=== PATIENT | female | born 1975 | race African-American/Black ===

== ENCOUNTER 2019-10-29 14:01 | Emergency (ER) | payer BC, OTHER ==
[~2019-10-29] VITALS: Ht 157.5 cm; Wt 63.0 kg
== END 2019-10-29 15:10 | disposition home or self-care (01) ==
LOC: FSED 14:01
DX: R05 Cough (principal); J30.1 Allergic rhinitis due to pollen; I10 Essential (primary) hypertension
CPT/HCPCS: 83518; 87400; 99283

== ENCOUNTER 2020-06-27 09:17 | Observation (INO) | payer BC ==
[~2020-06-27] VITALS: Ht 157.5 cm; Wt 63.0 kg
[2020-06-27] MEDS ORDERED: SODIUM CHLORIDE 0.9% 1000ML 1,000 ML IV STA (09:21)
[2020-06-27] MEDS ORDERED: METHYLPREDNISOLONE SOD SUCC 125 MG/2ML VIAL IV STA (09:21)
--- OUTSIDE RECORDS SUMMARY | 2020-06-27 09:24 | XMS REPORT | Continuity of Care Document ---
Author Author [facility] t Organization [facility] Address [address] [place] [address] Phone Unavailable Care Team Providers Care Insulation Worker Furnace Installer Name Role Phone NO, PCP PCP Unavailable Payers Payer Name Policy Type Policy Number Effective Date Expiration Date [facility] [id number] 2019 00:00:00 [facility] Cdc Review Covid19 [id number] [facility] Problems This patient has no known problems. Allergies, Adverse Reactions, Alerts This patient has no known allergies or adverse reactions. Medications This patient has no known medications. Procedures This patient has no known procedures. Encounters Start Date/Time End Date/Time Encounter Type Admission Type Att[facility] Care Department Encounter ID Source 2019-10-29 14:01:00 2019-10-29 15:10:00 Departed Emergency Room [facility] [id number] [facility] Results This patient has no known results.
[2020-06-27] MEDS ORDERED: ALBUTEROL/IPRATROPIUM 3 ML NEB NEB ONE (09:30)
[2020-06-27 10:02] LABS: BASOPHILS # (AUTO) 0.1 (0.0-0.1); BASOPHILS % 1.3 % (0.0-1.0); EOSINOPHILS # (AUTO) 0.1 (0.0-0.4); EOSINOPHILS % 1.8 % (0.0-6.0); HEMATOCRIT 38.1 % (34.2-44.1); HEMOGLOBIN 13.7 g/dL (12.0-16.0); LYMPHOCYTES % 41.1 % (18.0-39.1); MEAN CORPUSCULAR HEMOGLOBIN 30.2 pg (28-32); MEAN CORPUSCULAR VOLUME 84.1 fL (81-99); MONOCYTES # (AUTO) 0.5 (0.2-0.8); NEUTROPHILS # (AUTO) 3.5 (2.1-6.9); NEUTROPHILS % 48.4 % (38.7-80.0); PLATELET COUNT 279 x10e3/uL (140-360); RED BLOOD COUNT 4.53 x10e6/uL (3.6-5.1); RED CELL DISTRIBUTION WIDTH 13.2 % (11.7-14.4)
[2020-06-27 10:26] LABS: INR 0.95; PROTHROMBIN TIME 13.2 seconds (11.9-14.5)
[2020-06-27 10:27] LABS: PARTIAL THROMBOPLASTIN TIME 29.5 seconds (23.8-35.5)
[2020-06-27 10:30] LABS: ALANINE AMINOTRANSFERASE 15 IU/L (0-55); ALBUMIN 4.8 g/dL (3.5-5.0); ALBUMIN/GLOBULIN RATIO 1.2 (0.8-2.0); ALKALINE PHOSPHATASE 54 IU/L (40-150); ANION GAP 29.5 mmol/L (8-16); BLOOD UREA NITROGEN 11 mg/dL (7-26); BUN/CREATININE RATIO 14 (6-25); CALCIUM 9.5 mg/dL (8.4-10.2); CARBON DIOXIDE 22 mmol/L (22-29); CHLORIDE 90 mmol/L (98-107); CREATINE KINASE 194 IU/L (29-168); CREATININE, SERUM 0.76 mg/dL (0.57-1.11); EST GLOMERULAR FILTRATION RATE > 60 ML/MIN (60-); GLUCOSE 112 mg/dL (74-118); MAGNESIUM 1.9 MG/DL (1.3-2.1); POTASSIUM 3.5 mmol/L (3.5-5.1); SODIUM 138 mmol/L (136-145)
--- NOTE | 2020-06-27 11:11 | Diagnostic Imaging Report ---
EXAMINATION: CHEST SINGLE (PORTABLE) INDICATION: ^SOB, WHEEZING/SMOKER ^[id number] ^[id number] COMPARISON: None FINDINGS: TUBES and LINES: None. LUNGS: Normal lung volumes. Lungs are clear. No consolidations. PLEURA: No pleural effusion or pneumothorax. HEART AND MEDIASTINUM: The cardiomediastinal silhouette is unremarkable. BONES AND SOFT TISSUES: No acute osseous lesion. Soft tissues are unremarkable. UPPER ABDOMEN: No free air under the diaphragm. IMPRESSION: No acute thoracic radiographic abnormality. Signed by: Babs Guerra MD on 06/27/2020 11:08 AM
--- NOTE | 2020-06-27 11:45 | Emergency Department Note ---
History of Present Illnes History of Present Illness Chief Complaint: Respiratory History of Present Illness This is a 45 year old female X 3 DAYS SHORT OF BREATH. PAIN WORSE IN BACK WITH A DEEP BREATH. SAT 100%. DIFFICULTY COMPLETING SENTENCES. DENIES ANY COUGH, NAUSEA OR DIARRHEA, OR FEVERS. Historian: Patient Arrival Mode: Car Additional Treatment MANAGING DIRECTOR: NONE Guide Dog Mobility Instructor Required: No Onset (how long ago): day(s) (3) Radiation: Reports back Severity: moderate Onset quality: gradual Timing of current episode: intermittent Chronicity: new Context: Denies recent illness Relieving factors: none Exacerbating factors: none Associated symptoms: Reports denies other symptoms Past Medical/Family History Physician Review I have reviewed the patient's past medical and family history. Any updates have been documented here. Past Medical History Recent Fever: No Clinical Suspicion of Infectio: No New/Unexplained Change in Ment: No Past Medical History: None Past Surgical History: None Social History Smoking Cessation: Current every day smoker Counseling Performed: Yes Alcohol Use: None Any Illegal Drug Use: No TB Exposure/Symptoms: No Physically hurt or threatened: No Family History Family history of heart diseas: No Other Last Tetanus: utd Any Pre-Existing Lines (PICC,: No Review of Systems Review of Systems Constitutional: Reports no symptoms EENTM: Reports no symptoms Cardiovascular: Reports no symptoms Respiratory: Reports as per HPI Gastrointestinal: Reports no symptoms Genitourinary: Reports no symptoms Musculoskeletal: Reports no symptoms Integumentary: Reports no symptoms Neurological: Reports no symptoms Psychological: Reports no symptoms Endocrine: Reports no symptoms Hematological/Lymphatic: Reports no symptoms Physical Exam Related Data Allergies: Coded Allergies: No Known Allergies (Unverified , 06/27/20) Triage Vital Signs Vital Signs Date Time Temp Pulse Resp B/P (MAP) Pulse Ox O2 Delivery O2 Flow Rate FiO2 06/27/20 09:19 98.1 88 22 178/112 100 Vital signs reviewed: Yes Physical Exam CONSTITUTIONAL Constitutional: Present well-developed, Present well-nourished HENT HENT: Present normocephalic, Present atraumatic, Present oropharynx clear/moist, Present nose normal HENT L/R: Present left ext ear normal, Present right ext ear normal EYES Eyes: Reports PERRL, Reports conjunctivae normal NECK Neck: Present ROM normal PULMONARY Pulmonary: Present effort normal, Present other (DIFFUSE MODERATE EXP WHEEZES) CARDIOVASCULAR Cardiovascular: Present regular rhythm, Present heart sounds normal, Present capillary refill normal, Present normal rate GASTROINTESTINAL Abdominal: Present soft, Present nontender, Present bowel sounds normal GENITOURINARY Genitourinary: Present exam deferred SKIN Skin: Present warm, Present dry MUSCULOSKELETAL Musculoskeletal: Present ROM normal NEUROLOGICAL Neurological: Present alert, Present oriented x 3, Present no gross motor or sensory deficits PSYCHOLOGICAL Psychological: Present mood/affect normal, Present judgement normal Results Laboratory Result Diagram: 06/27/2092806/27/20928 Laboratory Laboratory Tests Test 06/27/20 09:41 06/27/20 09:29 Coronavirus (PCR) Not detected (NOTDETECTED) White Blood Count 7.17 x10e3/uL (4.8-10.8) Red Blood Count 4.53 x10e6/uL (3.6-5.1) Hemoglobin 13.7 g/dL (12.0-16.0) Hematocrit 38.1 % (34.2-44.1) Mean Corpuscular Volume 84.1 fL (81-99) Mean Corpuscular Hemoglobin 30.2 pg (28-32) Mean Corpuscular Hemoglobin Concent 36.0 g/dL (31-35) Red Cell Distribution Width 13.2 % (11.7-14.4) Platelet Count 279 x10e3/uL (140-360) Neutrophils (%) (Auto) 48.4 % (38.7-80.0) Lymphocytes (%) (Auto) 41.1 % (18.0-39.1) Monocytes (%) (Auto) 7.0 % (4.4-11.3) Eosinophils (%) (Auto) 1.8 % (0.0-6.0) Basophils (%) (Auto) 1.3 % (0.0-1.0) Neutrophils # (Auto) 3.5 (2.1-6.9) Lymphocytes # (Auto) 3.0 (1.0-3.2) Monocytes # (Auto) 0.5 (0.2-0.8) Eosinophils # (Auto) 0.1 (0.0-0.4) Basophils # (Auto) 0.1 (0.0-0.1) Absolute Immature Granulocyte (auto 0.03 x10e3/uL (0-0.1) Prothrombin Time 13.2 seconds (11.9-14.5) Prothromb Time International Ratio 0.95 Activated Partial Thromboplast Time 29.5 seconds (23.8-35.5) D-Dimer Quantitative (PE/DVT) 0.42 ug/mLFEU (0.00-0.45) Sodium Level 138 mmol/L (136-145) Potassium Level 3.5 mmol/L (3.5-5.1) Chloride Level 90 mmol/L (98-107) Carbon Dioxide Level 22 mmol/L (22-29) Anion Gap 29.5 mmol/L (8-16) Blood Urea Nitrogen 11 mg/dL (7-26) Creatinine 0.76 mg/dL (0.57-1.11) Estimat Glomerular Filtration Rate > 60 ML/MIN (60-) BUN/Creatinine Ratio 14 (6-25) Glucose Level 112 mg/dL (74-118) Calcium Level 9.5 mg/dL (8.4-10.2) Magnesium Level 1.9 MG/DL (1.3-2.1) Total Bilirubin 0.5 mg/dL (0.2-1.2) Aspartate Amino Transf (AST/SGOT) 19 IU/L (5-34) Alanine Aminotransferase (ALT/SGPT) 15 IU/L (0-55) Alkaline Phosphatase 54 IU/L (40-150) Creatine Kinase 194 IU/L (29-168) Creatine Kinase MB 1.40 ng/mL (0-5.0) Troponin I < 0.001 ng/mL (0-0.300) B-Type Natriuretic Peptide < 10.0 pg/mL (0-100) Total Protein 8.9 g/dL (6.5-8.1) Albumin 4.8 g/dL (3.5-5.0) Globulin 4.1 g/dL (2.3-3.5) Albumin/Globulin Ratio 1.2 (0.8-2.0) Laboratory Tests Test 06/27/20 09:41 06/27/20 09:29 Coronavirus (PCR) Not detected (NOTDETECTED) White Blood Count 7.17 x10e3/uL (4.8-10.8) Red Blood Count 4.53 x10e6/uL (3.6-5.1) Hemoglobin 13.7 g/dL (12.0-16.0) Hematocrit 38.1 % (34.2-44.1) Mean Corpuscular Volume 84.1 fL (81-99) Mean Corpuscular Hemoglobin 30.2 pg (28-32) Mean Corpuscular Hemoglobin Concent 36.0 g/dL (31-35) Red Cell Distribution Width 13.2 % (11.7-14.4) Platelet Count 279 x10e3/uL (140-360) Neutrophils (%) (Auto) 48.4 % (38.7-80.0) Lymphocytes (%) (Auto) 41.1 % (18.0-39.1) Monocytes (%) (Auto) 7.0 % (4.4-11.3) Eosinophils (%) (Auto) 1.8 % (0.0-6.0) Basophils (%) (Auto) 1.3 % (0.0-1.0) Neutrophils # (Auto) 3.5 (2.1-6.9) Lymphocytes # (Auto) 3.0 (1.0-3.2) Monocytes # (Auto) 0.5 (0.2-0.8) Eosinophils # (Auto) 0.1 (0.0-0.4) Basophils # (Auto) 0.1 (0.0-0.1) Absolute Immature Granulocyte (auto 0.03 x10e3/uL (0-0.1) Prothrombin Time 13.2 seconds (11.9-14.5) Prothromb Time International Ratio 0.95 Activated Partial Thromboplast Time 29.5 seconds (23.8-35.5) D-Dimer Quantitative (PE/DVT) 0.42 ug/mLFEU (0.00-0.45) Sodium Level 138 mmol/L (136-145) Potassium Level 3.5 mmol/L (3.5-5.1) Chloride Level 90 mmol/L (98-107) Carbon Dioxide Level 22 mmol/L (22-29) Anion Gap 29.5 mmol/L (8-16) Blood Urea Nitrogen 11 mg/dL (7-26) Creatinine 0.76 mg/dL (0.57-1.11) Estimat Glomerular Filtration Rate > 60 ML/MIN (60-) BUN/Creatinine Ratio 14 (6-25) Glucose Level 112 mg/dL (74-118) Calcium Level 9.5 mg/dL (8.4-10.2) Magnesium Level 1.9 MG/DL (1.3-2.1) Total Bilirubin 0.5 mg/dL (0.2-1.2) Aspartate Amino Transf (AST/SGOT) 19 IU/L (5-34) Alanine Aminotransferase (ALT/SGPT) 15 IU/L (0-55) Alkaline Phosphatase 54 IU/L (40-150) Creatine Kinase 194 IU/L (29-168) Creatine Kinase MB 1.40 ng/mL (0-5.0) Troponin I < 0.001 ng/mL (0-0.300) B-Type Natriuretic Peptide < 10.0 pg/mL (0-100) Total Protein 8.9 g/dL (6.5-8.1) Albumin 4.8 g/dL (3.5-5.0) Globulin 4.1 g/dL (2.3-3.5) Albumin/Globulin Ratio 1.2 (0.8-2.0) Lab results reviewed: Yes Imaging Imaging results reviewed: Yes Impressions EXAMINATION: CHEST SINGLE (PORTABLE) FINDINGS: TUBES and LINES: None. LUNGS: Normal lung volumes. Lungs are clear. No consolidations. PLEURA: No pleural effusion or pneumothorax. HEART AND MEDIASTINUM: The cardiomediastinal silhouette is unremarkable. BONES AND SOFT TISSUES: No acute osseous lesion. Soft tissues are unremarkable. UPPER ABDOMEN: No free air under the diaphragm. IMPRESSION: No acute thoracic radiographic abnormality. Signed by: Babs Guerra MD on 06/27/2020 11:08 AM Procedures 12 Lead ECG Interpretation ECG Interpretation : ECG: ECG 1 Guide Dog Mobility Instructor: Interpreted by ED physician Date: Jun 27, 2020 Time: 09:38 Rhythm: sinus bradycardia Rate: bradycardia BPM: 56 QRS axis: normal ST segments normal: Yes T wave inversion: III, aVF, V3, V4, V5, V6 T waves flattening: II Clinical Impression: abnormal ECG Assessment & Plan Medical Decision Making MDM SOB WITH PLEURITIC PAIN IN BACK, SMOKER, WHEEZING ON EXAM - CBC, CHEM, ECG, CARDIACS, CXR, COVID SWAB - R/O STEMI/NSTEMI, PNEUMONIA, COPD, COVID. STEROIDS/DUONEBS ORDERED Reassessment Reassessment PT IMPROVED WITH SOLUMEDROL/DUONEB. COVID NEG, CXR NL. ECG ABNORMAL - WILL ADMIT TO R/O ACS, GIVE STEROIDS/NEBS - SPOKE WITH DR BERRY Assessment & Plan Final Impression: (1) COPD (chronic obstructive pulmonary disease) (2) Abnormal ECG Depart Disposition: ADMITTED Last Vital Signs Date Time Temp Pulse Resp B/P (MAP) Pulse Ox O2 Delivery O2 Flow Rate FiO2 06/27/20 10:08 91 18 100 06/27/20 09:19 98.1 178/112 Medications in the ED Methylprednisolone Sodium Succinate 125 mg ONCE STAT IV Last administered on 06/27/20at 11:14; Admin Dose 125 MG; Start 06/27/20 at 09:21; Stop 06/27/20 at 09:36; Status DC Sodium Chloride 1,000 ml @ 0 mls/hr Q0M STAT IV Last administered on 06/27/20at 11:14; Admin Dose 999 MLS/HR; Start 06/27/20 at 09:21; Stop 06/27/20 at 09:36; Status DC Albuterol/ Ipratropium 6 ml ONCE ONCE NEB Last administered on 06/27/20at 10:08; Admin Dose 6 ML; Start 06/27/20 at 09:30; Stop 06/27/20 at 09:36; Stat us DC DANIAL PAVON MD Jun 27, 2020 11:45
[2020-06-27] MEDS ORDERED: MORPHINE SULFATE 2 MG/ML SYR 1ML IV PRN (12:00)
[2020-06-27] MEDS ORDERED: ONDANSETRON HCL INJ 2MG/ML 2ML 2 MG/ML VIAL IV PRN (12:00)
--- OUTSIDE RECORDS SUMMARY | 2020-06-27 12:28 | XMS REPORT | Continuity of Care Document ---
Author Author [facility] t Organization [facility] Address [address] [place] [address] Phone Unavailable Care Team Providers Care Subcontract Manager Name Role Phone NO, PCP PCP Unavailable Ryan PAVON Attphys Unavailable Payers Payer Name Policy Type Policy Number Effective Date Expiration Date S uvaldo [employer] [place] Ppo [id number] 2019 00:00:00 [facility] Cdc Review Covid19 [id number] [facility] Problems This patient has no known problems. Allergies, Adverse Reactions, Alerts This patient has no known allergies or adverse reactions. Medications This patient has no known medications. Procedures This patient has no known procedures. Encounters Start Date/Time End Date/Time Encounter Type Admission Type Attendi [facility] Care Department Encounter ID Source 2019-10-29 14:01:00 2019-10-29 15:10:00 Departed Emergency Room [facility] [id number] [facility] Results Test Description Test Time Test Comments Results Result Comments Source CHEST SINGLE (PORTABLE) 2020-06-27 11:05:00 [facility] : 1975 Sex: F [facility] [address] [address] Patient Name: AGATHA GRESHAM MR #: [id number] : 1975 Age/Sex: 45/F Req #: [id number] [facility] Physician: Ordered by: DANIAL PAVON MD Report #: [id number] Location: ER Room/Bed: Procedure: [id number] DX/CHEST SINGLE (PORTABLE) Exam Date: 06/27/20 Exam Time: 1005 REPORT STATUS: Signed EXAMINATION: CHEST SINGLE (PO RTABLE) INDICATION: SOB, WHEEZING/SMOKER [id number] 100 COMPARISON: None FINDINGS: TUBES and LINES: None. LUNGS: Normal lung volumes. Lungs are clear. No consolidations. PLEURA: No pleural effusion or pneumothorax. HEART AND MEDIASTINUM: The cardiomediastinal silhouette is unremarkable. BONES AND SOFT TISSUES: No acute osseous lesion. Soft tissues are unremarkable. UPPER ABDOMEN: No free air under the diaphragm. IMPRESSION: No acute thoracic radiographic abnormality. Signed by: Amalia Gonzalez MD on 06/27/2020 11:08 AM Dictated By: AMALIA GONZALEZ MD 07 Transcribed By: ARNOLDO on 06/27/201107 COPY TO: DANIAL PAVON MD
[2020-06-27] MEDS: METHYLPREDNISOLONE SOD SUCC 125 MG/2ML VIAL IV SCH ×2 (12:50→22:19)
[2020-06-27] MEDS ORDERED: ONCE DAILY1 EACH PO (12:54)
--- NOTE | 2020-06-27 13:06 | NUR ---
H&P cc: sob HPI: 45yoF, developed worsening SOB. Pt states that 3 days ago started having right back discomfort with deep breath, now worsening SOB at rest. Does smoke 1ppd cigs; PMH: current smoker PShx: none Allergies; see emr fH/HS; single; 1ppd cigs; works at [employer]; see MAR ROS; no f/c/s/n/V/D/DIOR/cp/skin rash/confusion/dizziness/leg pain/visionchagnes v/s; revd PE tired appearing anicteric NS1S2 Mod bs; no w soft nt nd no e/t skin dry n. affect labs/meds revd A/P; Acute bronchitis- nebs/steroids/antitussives/loratadine/montelukast;no dx of COPD in past; f/u CT [facility]- O2; nebs; reassess; may need echo Current smoker- start nicotine patch prop; scd; pepcid dispo; f/u CT; consider echo; counseled on cig cessatoin MAYNOR GUDINO MD, PHD.
[2020-06-27] MEDS ORDERED: GUAIFENESIN/DEXTROMETHORPHAN LIQD 5 ML UDC NG PRN (13:15)
[2020-06-27] MEDS ORDERED: ACETAMINOPHEN 325 MG TAB PO PRN (13:15)
[2020-06-27] MEDS ORDERED: DOCUSATE SODIUM 100 MG CAP PO PRN (13:15)
[2020-06-27] MEDS: ALBUTEROL/IPRATROPIUM 3 ML NEB NEB SCH ×3 (13:55→22:18)
--- NOTE | 2020-06-27 15:04 | NUR ---
Received patient from ER via wheelchair. AAOX4 to time, person, place, situation. Respirations even and unlabored. Denies pain. Oriented patient to room. Instructed to use call light for assistance. Voiced understanding.
[2020-06-27] MEDS: BENZONATATE 100 MG CAP PO SCH ×2 (15:34→22:19)
[2020-06-27] MEDS: FAMOTIDINE 20 MG TAB PO SCH (15:34)
[2020-06-27 15:44] VITALS: BP 146/84
[2020-06-27 15:49] VITALS: BP 146/84
[2020-06-27 16:00] VITALS: BP 146/84
[2020-06-27] MEDS ORDERED: ENOXAPARIN SOD INJ 40 MG/0.4 ML SYR SC SCH (17:00)
[2020-06-27 17:51] LABS: CREATINE KINASE 170 IU/L (29-168)
--- NOTE | 2020-06-27 19:20 | NUR ---
Report given to oncoming nurse of patients status. Resting in bed. AAOX4 to time, person, place, situation. No s/s of acute distress noted. Side rails upx2, call light within reach.
[2020-06-27 20:00] VITALS: BP 121/69
[2020-06-27 21:00] VITALS: BP 121/69
[2020-06-27] MEDS ORDERED: MONTELUKAST SODIUM 10 MG TAB PO SCH (21:00)
[2020-06-27] MEDS ORDERED: ZOLPIDEM TARTRATE 5 MG TAB PO PRN (21:00)
[2020-06-27] MEDS: NICOTINE 14 MG/EA PATCH TOP SCH (22:20)
[2020-06-28] VITALS: BP 138/72
[2020-06-28 01:34] LABS: CREATINE KINASE 149 IU/L (29-168)
[2020-06-28] MEDS: ALBUTEROL/IPRATROPIUM 3 ML NEB NEB SCH ×4 (03:35→14:46)
[2020-06-28 04:00] VITALS: BP 148/81
[2020-06-28 05:34] LABS: BASOPHILS % 0.1 % (0.0-1.0); HEMATOCRIT 36.1 % (34.2-44.1); HEMOGLOBIN 12.5 g/dL (12.0-16.0); LYMPHOCYTES # (AUTO) 0.8 (1.0-3.2); LYMPHOCYTES % 8.3 % (18.0-39.1); MEAN CORPUSCULAR HEMOGLOBIN 29.6 pg (28-32); MEAN CORPUSCULAR HGB CONC 34.6 g/dL (31-35); MEAN CORPUSCULAR VOLUME 85.3 fL (81-99); MONOCYTES # (AUTO) 0.1 (0.2-0.8); MONOCYTES % 1.2 % (4.4-11.3); NEUTROPHILS # (AUTO) 8.3 (2.1-6.9); PLATELET COUNT 300 x10e3/uL (140-360); RED BLOOD COUNT 4.23 x10e6/uL (3.6-5.1); RED CELL DISTRIBUTION WIDTH 12.6 % (11.7-14.4)
[2020-06-28 05:58] LABS: ALANINE AMINOTRANSFERASE 12 IU/L (0-55); ALBUMIN 3.7 g/dL (3.5-5.0); ALKALINE PHOSPHATASE 47 IU/L (40-150); ANION GAP 12.8 mmol/L (8-16); BLOOD UREA NITROGEN 13 mg/dL (7-26); BUN/CREATININE RATIO 18 (6-25); CALCIUM 8.7 mg/dL (8.4-10.2); CARBON DIOXIDE 20 mmol/L (22-29); CHLORIDE 107 mmol/L (98-107); CHOL/HDL RATIO 3.4 (3.0-3.6); CHOLESTEROL 232 MD/DL (0-199); CREATININE, SERUM 0.73 mg/dL (0.57-1.11); EST GLOMERULAR FILTRATION RATE > 60 ML/MIN (60-); GLUCOSE 200 mg/dL (74-118); HDL CHOLESTEROL 68 MG/DL (40-60); LDL CHOLESTEROL 151 MG/DL (60-130); POTASSIUM 3.8 mmol/L (3.5-5.1); SODIUM 136 mmol/L (136-145); TRIGLYCERIDES 63 MG/DL (0-149)
[2020-06-28] MEDS: METHYLPREDNISOLONE SOD SUCC 125 MG/2ML VIAL IV SCH ×2 (06:25→14:37)
--- NOTE | 2020-06-28 06:39 | NUR ---
D/C summary Principal Dx: Acute bronchitis- nebs/steroids/antitussives/loratadine/montelukast;no dx of COPD in past; f/u CT [facility]- O2; nebs; reassess; may need echo Secondary Dx; Current smoker- start nicotine patch prop; scd; pepcid dispo; f/u CT; consider echo; counseled on cig cessation 11-30 cont care; d/c home f/u 1-2 days stable d/c>35mins MAYNOR GUDINO MD, PHD.
--- NOTE | 2020-06-28 07:00 | NUR ---
RECEIVED BEDSIDE SHIFT REPORT FROM OFF GOING NIGHT NURSE. RESPIRATIONS EVEN AND NONLABORED. PATENT ABLE TO VOICE NEEDS. PATIENT IN STABLE CONDITION, NO S/S OF DISTRESS NOTED. TELEMETRY APPLIED. IV SITE ASYMPTOMATIC AND PATENT, TRANSPARENT DRESSING C/D/I. BED IN LOWEST POSITION AND LOCKED, SIDE RAILS X 2, NON SKID SOCKS APPLIED. CALL LIGHT WITHIN REACH.
[2020-06-28 08:00] VITALS: BP 164/84
[2020-06-28 08:48] VITALS: BP 164/84
[2020-06-28] MEDS ORDERED: LORATADINE 10 MG TAB PO SCH (09:00)
[2020-06-28] MEDS ORDERED: ASPIRIN 81 MG ENTERIC COATED PO SCH (09:00)
[2020-06-28] MEDS: BENZONATATE 100 MG CAP PO SCH ×2 (09:52→14:37)
[2020-06-28] MEDS: FAMOTIDINE 20 MG TAB PO SCH (09:52)
[2020-06-28] MEDS: NICOTINE 14 MG/EA PATCH TOP SCH (09:53)
--- NOTE | 2020-06-28 10:22 | NUR ---
OBS DAY 1. DX: COPD EXAC; ABN EKG SENT TO R1 FOR LOC DETERMINATION
[2020-06-28 11:46] VITALS: BP 131/77
[2020-06-28] MEDS ORDERED: ONDANSETRON HCL 4 MG ORAL DISINTEGRATING TAB PO PRN (14:15)
[2020-06-28 16:01] VITALS: BP 143/81
--- NOTE | 2020-06-28 16:35 | NUR ---
PATIENT DISCHARGED HOME. PATIENT OF THE UNIT @ 1615 VIA WHEELCHAIR ACCOMPANIED BY RN TO THE LOBBY. PATIENT IN STABLE CONDITION, NO S/S OF DISTRESS NOTED. NO PAIN VOICED. IV ACCESS REMOVED WITH TIP INTACT. ALL PERSONAL ITEM TAKEN WITH THE PATIENT. DISCHARGE TEACHING AND INSTRUCTION GIVEN TO THE PATIENT. PATIENT VERBALIZED UNDERSTANDING. CALLED IN THE PATIENT'S PRESCRIPTIONS CALLED INTO [facility] # [phone]. DISCHARGE PAPERWORK GIVEN TO THE PATIENT.
== END 2020-06-28 16:15 | disposition home or self-care (01) ==
LOC: ER 09:21 → ERHOLD 12:03 → MED/SURG2 15:02
PROVIDERS: ADMIT Internal Medicine; ATTEND Internal Medicine
DX: J20.9 Acute bronchitis, unspecified (principal); Z20.828 Contact with and (suspected) exposure to other viral communicable diseases; J44.0 Chronic obstructive pulmonary disease with (acute) lower respiratory infection; F17.200 Nicotine dependence, unspecified, uncomplicated
CPT/HCPCS: 36415 ×2; 71045; 80053 ×2; 80061; 82550 ×2; 82553 ×2; 83735; 83880; 84484 ×2; 85025 ×2; 85379; 85610; 85730; 93005; 94640 ×3; 99284; G0378 ×2; J1650; J2930 ×2; J7030; U0002